=== PATIENT | male | born 1950 | race Caucasian/White ===

== ENCOUNTER → 2021-11-23 | Outpatient (CLI) | payer OTHER ==
[2021-11-23 10:55] LABS: BASO % 0.5 % (0.0-1.0); BILIRUBIN Negative (Negative); BLOOD Negative (Negative); CLARITY Clear (Clear); COLOR Yellow (Yellow); EOS % 1.1 % (1.0-4.0); GLUCOSE Negative (Negative); HEMATOCRIT 37.6 % (42.0-52.0); KETONE Negative (Negative); LEUKO ESTERASE 3+ (Negative); LYMPH # 0.7 10*3/uL (1.3-4.4); LYMPH % 18.5 % (27.0-41.0); MEAN CORPUSCULAR HGB 25.4 pg (27.0-31.0); MEAN CORPUSCULAR HGB CONC 31.4 g/dl (33.0-37.0); MEAN PLATELET VOLUME 9.7 fl (9.6-12.3); MONO # 0.3 10*3/uL (0.1-1.0); MONO % 7.6 % (3.0-9.0); NEUT # 2.7 10*3/uL (2.3-7.9); NITRITE Negative (Negative); PLATELET COUNT AUTOMATED 196 10*3/uL (130-400); RED BLOOD COUNT 4.64 10*6/uL (4.50-5.90); RED CELL DISTRI WIDTH 18.9 % (0-14.5); RETICULOCYTE % 1.06 % (0.50-2.50); SPECIFIC GRAVITY 1.015 (1.001-1.030); WHITE BLOOD COUNT 3.7 10*3/uL (4.8-10.8)
[2021-11-23 11:12] LABS: ALKALINE PHOSPHATASE 104 U/L (45-117); BUN 11 mg/dl (7-24); CHLORIDE 107 mmol/L (98-107); CREATININE 0.83 mg/dL (0.70-1.30); IRON 24 ug/dL (65-175); LIPASE 81 U/L (73-393); POTASSIUM 4.2 mmol/L (3.5-5.1); SODIUM 138 mmol/L (136-145); T3 UPTAKE 35 % (31-39); TOTAL PROTEIN 7.3 gm/dL (6.4-8.2); TRIGLYCERIDES 56 mg/dl (<150); URIC ACID 5.6 mg/dL (3.5-7.2)
[2021-11-23 11:52] LABS: CHOLESTEROL 109 mg/dL (<200); GAMMA GLUTAMYL TRANSPEPTIDASE 11 U/L (15-85); LDL CHOLESTEROL 56 mg/dL (9-159); SGOT/AST 20 IU/L (3-35); SGPT/ALT 15 U/L (12-78); THYROXINE (T4) TOTAL 9.3 ug/dl (4.5-12.1)
[2021-11-23 12:01] LABS: FERRITIN 15.9 ng/mL (22.0-322.0); VITAMIN D, 25-HYDROXY 46.8 ng/mL (30-100)
[2021-11-23 13:36] LABS: BACTERIA 1+; WBC 41-50 wbc/hpf (0-5)
[2021-11-24 04:06] LABS: RHEUMATOID FACTOR <10.0 IU/mL (<14.0)
[2021-11-24 06:07] LABS: H PYLORI IGG AB 0.24 (0.00-0.79)
[2021-11-24 13:06] LABS: ANTI-DSDNA ANTIBODIES 1 IU/mL (0-9); H.PYLORI AB IGM <9.0 units (0.0-8.9)
[2021-11-24 15:06] LABS: H.PYLORI IgA <9.0 units (0.0-8.9)
== END | disposition home or self-care (01) ==
LOC: LAB 10:26
PROVIDERS: ATTEND Family Medicine
DX: E55.9 Vitamin D deficiency, unspecified (principal); R53.83 Other fatigue; R79.89 Other specified abnormal findings of blood chemistry; Z12.5 Encounter for screening for malignant neoplasm of prostate; Z79.899 Other long term (current) drug therapy

== ENCOUNTER → 2021-11-29 | Outpatient (CLI) | payer OTHER | END | disposition home or self-care (01) | LOC: RAD 07:10 | PROVIDERS: ATTEND Family Medicine | DX: J43.8 Other emphysema (principal) ==

== ENCOUNTER → 2021-12-02 | Outpatient (CLI) | payer OTHER | END | disposition home or self-care (01) | LOC: CT 09:30 | PROVIDERS: ATTEND Family Medicine | DX: K57.32 Diverticulitis of large intestine without perforation or abscess without bleeding (principal); M48.061 Spinal stenosis, lumbar region without neurogenic claudication; M25.78 Osteophyte, vertebrae ==

== ENCOUNTER → 2021-12-09 | Outpatient (CLI) | payer OTHER | END | disposition home or self-care (01) | LOC: CT 08:11 | PROVIDERS: ATTEND Family Medicine | DX: J43.9 Emphysema, unspecified (principal); R91.8 Other nonspecific abnormal finding of lung field; I25.10 Atherosclerotic heart disease of native coronary artery without angina pectoris ==

== ENCOUNTER → 2022-01-12 | Outpatient (CLI) | payer OTHER | END | disposition home or self-care (01) | LOC: US 01-11 18:57 | PROVIDERS: ATTEND Family Medicine | DX: N28.1 Cyst of kidney, acquired (principal); N32.89 Other specified disorders of bladder ==

== ENCOUNTER → 2022-01-18 | Outpatient (CLI) | payer OTHER ==
[2022-01-18 09:02] LABS: BUN 11 mg/dl (7-24); CREATININE 0.81 mg/dL (0.70-1.30)
== END | disposition home or self-care (01) ==
LOC: LAB 08:05
PROVIDERS: ATTEND Surgery Vascular Surgery
DX: I71.4 Abdominal aortic aneurysm, without rupture (principal)

== ENCOUNTER → 2022-01-23 | Outpatient (CLI) | payer OTHER | END | disposition home or self-care (01) | LOC: CT 01-20 10:00 | PROVIDERS: ATTEND Surgery Vascular Surgery | DX: J84.10 Pulmonary fibrosis, unspecified (principal); J43.9 Emphysema, unspecified ==

== ENCOUNTER → 2022-06-05 | Outpatient (CLI) | payer OTHER ==
[2022-06-05 10:57] LABS: BILIRUBIN Negative (Negative); BLOOD Negative (Negative); CLARITY Clear (Clear); COLOR Yellow (Yellow); GLUCOSE Negative (Negative); KETONE Negative (Negative); LEUKO ESTERASE 1+ (Negative); NITRITE Negative (Negative); PH 6.5 (4.5-8.0); SPECIFIC GRAVITY 1.015 (1.001-1.030)
[2022-06-05 11:10] LABS: BASO % 0.3 % (0.0-1.0); EOS # 0.1 10*3/uL (0.0-0.4); EOS % 3.2 % (1.0-4.0); HEMATOCRIT 36.7 % (42.0-52.0); LYMPH # 0.7 10*3/uL (1.3-4.4); LYMPH % 21.5 % (27.0-41.0); MEAN CELL VOLUME 85.5 fl (80.0-94.0); MEAN CORPUSCULAR HGB 25.9 pg (27.0-31.0); MEAN CORPUSCULAR HGB CONC 30.2 g/dl (33.0-37.0); MONO # 0.3 10*3/uL (0.1-1.0); MONO % 9.6 % (3.0-9.0); NEUT # 2.2 10*3/uL (2.3-7.9); NEUT % 65.1 % (47.0-73.0); PLATELET COUNT AUTOMATED 211 10*3/uL (130-400); RED BLOOD COUNT 4.29 10*6/uL (4.50-5.90); RED CELL DISTRI WIDTH 18.2 % (0-14.5); RETICULOCYTE % 1.24 % (0.50-2.50); WHITE BLOOD COUNT 3.4 10*3/uL (4.8-10.8)
[2022-06-05 11:18] LABS: ALKALINE PHOSPHATASE 87 U/L (46-116); BUN 10 mg/dl (9-23); CHLORIDE 102 mmol/L (98-107); CHOLESTEROL 120 mg/dL (<200); GAMMA GLUTAMYL TRANSPEPTIDASE 15 U/L (0-73); LDL CHOLESTEROL 63 mg/dL (9-159); SGPT/ALT 20 U/L (10-49); THYROID STIM HORMONE (HS) 1.994 uIU/ml (0.550-4.780); THYROXINE (T4) TOTAL 8.2 ug/dl (4.5-10.9); TRIGLYCERIDES 68 mg/dl (<150)
[2022-06-05 11:45] LABS: VITAMIN D, 25-HYDROXY 30.5 ng/mL (30-100)
== END | disposition home or self-care (01) ==
LOC: LAB 10:06
PROVIDERS: ATTEND Family Medicine
DX: E78.5 Hyperlipidemia, unspecified (principal); E55.9 Vitamin D deficiency, unspecified; R79.89 Other specified abnormal findings of blood chemistry; R53.83 Other fatigue; R74.8 Abnormal levels of other serum enzymes

== ENCOUNTER → 2022-08-08 | Outpatient (CLI) | payer OTHER | END | disposition home or self-care (01) | LOC: CARD 12:29 | PROVIDERS: ATTEND Internal Medicine Cardiovascular Disease | DX: I34.0 Nonrheumatic mitral (valve) insufficiency (principal) ==

== ENCOUNTER → 2023-12-06 | Outpatient (CLI) | payer OTHER ==
[2023-12-06 11:41] LABS: BASO % 0.3 % (0.0-1.0); EOS # 0.1 10*3/uL (0.0-0.4); EOS % 2.4 % (1.0-4.0); HEMATOCRIT 42.8 % (42.0-52.0); LYMPH # 0.7 10*3/uL (1.3-4.4); LYMPH % 20.9 % (27.0-41.0); MEAN CELL VOLUME 87.9 fl (80.0-94.0); MEAN CORPUSCULAR HGB 28.5 pg (27.0-31.0); MEAN CORPUSCULAR HGB CONC 32.5 g/dl (33.0-37.0); MEAN PLATELET VOLUME 10.1 fl (9.6-12.3); MONO # 0.3 10*3/uL (0.1-1.0); MONO % 8.8 % (3.0-9.0); NEUT # 2.2 10*3/uL (2.3-7.9); NEUT % 67.6 % (47.0-73.0); PLATELET COUNT AUTOMATED 188 10*3/uL (130-400); RED BLOOD COUNT 4.87 10*6/uL (4.50-5.90); RED CELL DISTRI WIDTH 17.3 % (0-14.5); RETICULOCYTE % 1.14 % (0.50-2.50); WHITE BLOOD COUNT 3.3 10*3/uL (4.8-10.8)
[2023-12-06 11:41] LABS: BILIRUBIN Negative (Negative); BLOOD Negative (Negative); CLARITY Clear (Clear); COLOR Yellow (Yellow); GLUCOSE Negative (Negative); KETONE Negative (Negative); LEUKO ESTERASE 1+ (Negative); NITRITE Negative (Negative); PH 5.5 (4.5-8.0); SPECIFIC GRAVITY 1.015 (1.001-1.030)
[2023-12-06 12:05] LABS: EPITHELIAL CELLS 0-2
[2023-12-06 12:07] LABS: ALKALINE PHOSPHATASE 108 U/L (46-116); BUN 9 mg/dl (9-23); CHLORIDE 104 mmol/L (98-107); CHOLESTEROL 129 mg/dL (<200); GAMMA GLUTAMYL TRANSPEPTIDASE 23 U/L (0-73); LDL CHOLESTEROL 74 mg/dL (9-159); POTASSIUM 4.1 mmol/L (3.4-5.1); SGPT/ALT 9 U/L (5-49); TOTAL PROTEIN 7.5 gm/dL (6.0-8.0); TRIGLYCERIDES 79 mg/dl (<150)
[2023-12-06 12:09] LABS: VITAMIN D, 25-HYDROXY 48.1 ng/mL (30-100)
== END | disposition home or self-care (01) ==
LOC: LAB 11:16
PROVIDERS: ATTEND Family Medicine
DX: Z12.5 Encounter for screening for malignant neoplasm of prostate (principal); E55.9 Vitamin D deficiency, unspecified; R79.89 Other specified abnormal findings of blood chemistry; R53.83 Other fatigue; E78.5 Hyperlipidemia, unspecified

== ENCOUNTER → 2025-04-14 | Outpatient (CLI) | payer MEDICARE ==
[2025-04-14 11:24] LABS: BASO # 0.0 10*3/uL (0.0-0.1); BASO % 0.3 % (0.0-1.0); EOS # 0.1 10*3/uL (0.0-0.4); EOS % 3.5 % (1.0-4.0); MEAN CELL VOLUME 89.1 fl (80.0-94.0); MEAN CORPUSCULAR HGB 28.5 pg (27.0-31.0); MEAN PLATELET VOLUME 9.6 fl (9.6-12.3); MONO # 0.4 10*3/uL (0.1-1.0); MONO % 11.2 % (3.0-9.0); NEUT # 2.1 10*3/uL (2.3-7.9); NEUT % 56.0 % (47.0-73.0); NUCLEATED RED BLOOD CELL 0.0 % (0.0-0.0); NUCLEATED RED BLOOD CELL 0.0 10*3/uL (0.0-0.0); PLATELET COUNT AUTOMATED 184 10*3/uL (130-400); RED CELL DISTRI WIDTH 15.5 % (0-14.5); RETICULOCYTE % 1.16 % (0.50-2.50)
[2025-04-14 11:27] LABS: BILIRUBIN Negative (Negative); BLOOD Negative (Negative); CLARITY Clear (Clear); COLOR Yellow (Yellow); KETONE Negative (Negative); LEUKO ESTERASE 1+ (Negative); NITRITE Negative (Negative); PH 6.0 (4.5-8.0); SPECIFIC GRAVITY 1.010 (1.001-1.030); UROBILINOGEN 0.2 E.U./dl (0.0-1.0)
[2025-04-14 11:43] LABS: BACTERIA TRACE; WBC 21-30 wbc/hpf (0-5)
[2025-04-14 11:49] LABS: BUN 11 mg/dl (9-23); GAMMA GLUTAMYL TRANSFERASE 18 U/L (0-73); LDL CHOLESTEROL 64 mg/dL (9-159); SGPT/ALT 12 U/L (5-49)
[2025-04-14 12:28] LABS: VITAMIN D, 25-HYDROXY 46.5 ng/mL (30-100)
== END | disposition home or self-care (01) ==
LOC: LAB 10:51
PROVIDERS: ATTEND Family Medicine
DX: Z12.5 Encounter for screening for malignant neoplasm of prostate (principal); E55.9 Vitamin D deficiency, unspecified; E78.5 Hyperlipidemia, unspecified; R79.89 Other specified abnormal findings of blood chemistry; R53.83 Other fatigue